=== PATIENT | female | born 1965 | race Hispanic/Latino ===

== ENCOUNTER 2025-04-13 04:29 | Emergency (ER) | payer BC ==
[~2025-04-13] VITALS: Ht 157.5 cm; Wt 84.4 kg
[2025-04-13 04:32] VITALS: TEMP 98.8
--- NOTE | 2025-04-13 04:53 | NUR ---
PT ARRIVED TO ED C/O N/V FOR PAST 2 DAYS. CAME TO ED DUE TO DECREASED URINE OUTPUT, FEELING WEAK AND DECREASED ORAL INTAKE. PT IS AWAKE AND ALERT X4 NO DISTRESS NOTED AT THIS TIME. PT VOICED GRANDSON WAS SICK WITH N/V AND COLD LIKE SYMPTOMS.PT DENIES ANY DIARREA OR FEVERS AT HOME.
--- NOTE | 2025-04-13 04:54 | ERN ---
ED Note History of Present Illness Stated Complaint: C/O ABD PAIN WITH N X V, HEADACHE Chief Complaint: Abdominal Pain Time Seen by MD: 04:49 Dictation: This is a 59-year-old female morbidly obese who presented to the emergency room with complaints of nausea vomitings with the abdominal pain. All this started today. No hematemesis or melena stated that she vomited 7 times and felt really bad as she was not urinating as much. She could not also have any tears which concerned her that she might be very dehydrated. In addition she complains of a headache mostly on the backside and chronic neck pains lower back pain. No diplopia facial asymmetry motor weakness or seizure activity Temperature 98.8� pulse 94 respirations 20 blood pressure 127/70 with a pulse oximetry of 98% on room air Her chronic medical problems include hypertension and depression Allergies: Coded Allergies: No Known Allergies (Unverified Allergy, Unknown, 04/13/25) Home Meds Active Scripts Nitrofurantoin Monohyd/M-Cryst (Macrobid 100 mg Capsule) 100 Mg Capsule, 1 CAP PO BID for 7 Days, #14 CAP 0 Refills Prov:DILEEP MOFFETT MD 04/13/25 Cyclobenzaprine HCl (Cyclobenzaprine HCl) 5 Mg Tablet, 1 TAB PO TIDP PRN for muscle spasms for 5 Days, #15 TAB 0 Refills Prov:DILEEP MOFFETT MD 04/13/25 Past Medical History Past Medical History: Depression, Hypertension Surgical History: Other Surgical History Other: TUBAL LIGATION Family History: Negative Social History: Negative History: Not Applicable RN Note Reviewed/Agreed w/PFSH: Yes Review of System Dictation Constitutional: Negative for fever,chills, and weight loss Eyes: Negative for injury, pain,redness, and discharge ENT: Negative for injury,pain or swelling Cardiovascular: Negative for chest pain, palpitations, and edema Respiratory: Negative for shortness of breath, cough, and wheezing, Abdomen/GI: Positive for abdominal pain, nausea, vomiting, denied diarrhea, and constipation Back: Negative for injury and positive for low back pain : Negative for injury, bleeding and discharge MS/Extremity: Negative for injury and deformity Skin: Negative for rash, and discoloration Neuro: Positive for headache, denied weakness, numbness, tingling, and seizure Psych: Negative for suicide ideation, homicidal ideation, and hallucinations Initial Vital Sign VS Vital Signs Date Time Temp Pulse Resp B/P (MAP) Pulse Ox O2 Delivery O2 Flow Rate FiO2 04/13/25 04:32 98.8 94 20 127/70 96 Room Air 04/13/25 04:50 0 21 Physical Exam Dictation General: awake, alert, NAD obese female who walked to the ER room Head/Face: Normocephalic, atraumatic Eyes: PERRL, EOMI, vision at baseline ENT: oral cavity clear, TMs clear, no signs of infection Neck: Trachea midline, supple, no nuchal rigidity Cardiovascular: RRR, normal S1/S2, No MRGs, no JVD Respiratory: CTAB, no respiratory distress, No rales or wheezes Abdomen: Soft, non-tender, non-distended, normal bowel sounds, no guarding or rebound. Skin: Warm, dry, normal turgor, no rash MS/Extremity: Pulses equal, no cyanosis, neurovascular intact, FROM Neuro: COAx4, GCS 15, strength 5/5, CN 2-12 intact, normal cerebellar exam, normal gait, Psych: Normal behavior, mood, and affect normal Extremities-trace edema without any palpable cords, Homans sign is negative Results (Laboratory/Radiology) Laboratory/Radiology Laboratory Tests Test 04/13/25 04:39 04/13/25 04:48 Urine Color YELLOW (YELLOW) Urine Appearance CLOUDY (CLEAR) H Urine pH 6.0 (5.0-8.0) Urine Specific [place] 1.031 (1.001-1.031) Urine Protein 30 mg/dL (NEGATIVE) H Urine Glucose (UA) NEGATIVE mg/dL (NEGATIVE) Urine Ketones NEGATIVE mg/dL (NEGATIVE) Urine Occult Blood NEGATIVE (NEGATIVE) Urine Nitrate NEGATIVE (NEGATIVE) Urine Bilirubin NEGATIVE mg/dL (NEGATIVE) Urine Urobilinogen 2.0 mg/dL (0.2-1.0) H Urine Leukocyte Esterase 250 Richie/uL (NEGATIVE) H Urine RBC 2-5 /HPF (0-1) H Urine WBC 6-10 /HPF (0-1) H Urine Squamous Epithelial Cells RARE /HPF (0-2) Urine Amorphous Crystals (Auto) FEW /LPF (None Seen) Urine Bacteria RARE /HPF (None Seen) White Blood Count 10.4 K/uL (4.8-10.8) Red Blood Count 4.43 MIL/uL (4.00-5.50) Hemoglobin 13.3 g/dL (12.0-16.0) Hematocrit 39.2 % (36-48) Mean Corpuscular Volume 88.5 fL (79-99) Mean Corpuscular Hemoglobin 30.0 pg (27.0-33.0) Mean Corpuscular Hemoglobin Concent 33.9 g/dL (32.0-36.0) Red Cell Distribution Width 12.8 % (11.0-15.5) Platelet Count 200 K/uL (130-400) Mean Platelet Volume 10.0 fL (7.5-10.5) Immature Granulocyte % (Auto) 0.5 % (0-1) Neutrophils (%) (Auto) 85.9 % (40.0-77.0) H Lymphocytes (%) (Auto) 8.4 % (21.0-51.0) L Monocytes (%) (Auto) 4.9 % (3.0-13.0) Eosinophils (%) (Auto) 0.2 % (0.0-8.0) Basophils (%) (Auto) 0.1 % (0.0-5.0) Neutrophils # (Auto) 9.0 K/uL (1.8-7.7) H Lymphocytes # (Auto) 0.9 K/uL (1.0-4.8) L Monocytes # (Auto) 0.5 K/uL (0.1-1.0) Eosinophils # (Auto) 0.02 K/uL (0.00-0.70) Basophils # (Auto) 0.01 K/uL (0.00-0.20) Absolute Immature Granulocyte (auto 0.05 K/uL (0-1) Nucleated Red Blood Cells 0.0 % (0.0-0.19) White Cell Morphology Comment See comments Sodium Level 138 mmol/L (136-145) Potassium Level 3.9 mmol/L (3.5-5.1) Chloride Level 102 mmol/L (101-111) Carbon Dioxide Level 28 mmol/L (21-32) Blood Urea Nitrogen 14 mg/dL (7-18) Creatinine 0.9 mg/dL (0.5-1.0) Glomerular Filtration Rate Calc 74 mL/min (>90) Random Glucose 130 mg/dL (70-105) H Total Calcium 8.8 mg/dL (8.5-10.1) Lipase 22 U/L (16-77) Labs Reviewed?: Yes ED Course ED Course Orders Procedure Category Date Status Time Cbc With Differential LAB 04/13/25 Complete 04:53 Urinalysis Profile LAB 04/13/25 Complete 04:53 Ketorolac PHA 04/13/25 Complete Tromethamine 30mg/Ml 05:00 Ondansetron 4mg Inj PHA 04/13/25 Complete (Zofran 4mg Inj) 05:00 Pantoprazole 40mg Inj PHA 04/13/25 Complete (Protonix 40mg Inj 05:00 Lipase LAB 04/13/25 Complete 04:53 Basic Metabolic Panel LAB 04/13/25 Complete 04:53 Culture Urine LANDON 04/13/25 In Process 05:21 Cyclobenzaprine Hcl PHA 04/13/25 Complete (Cyclobenzaprine Hcl 06:30 Diphenhydramine Hcl PHA 04/13/25 Complete (Benadryl Inj) 06:30 Morphine 2mg Syg PHA 04/13/25 Complete (Morphine 2mg Syg) 06:30 0.9%Nacl 1000ml (Ns PHA 04/13/25 In Process 1000ml) 06:30 Current Medications Medications (Trade) Dose Ordered Sig/Yoan Route PRN Reason Start Time Stop Time Status Last Admin Dose Admin Cyclobenzaprine HCl (Cyclobenzaprine HCl) 5 mg ONCE ONCE PO 04/13/25 06:30 04/13/25 06:31 DC 04/13/25 06:12 Diphenhydramine HCl (BENAdryl INJ) 25 mg ONCE ONCE IV 04/13/25 06:30 04/13/25 06:31 DC 04/13/25 06:11 Ketorolac Tromethamine (toRADol) 30 mg ONCE ONCE IVP 04/13/25 05:00 04/13/25 05:01 DC 04/13/25 05:03 Morphine Sulfate (morPHINE 2MG SYG) 2 mg ONCE ONCE IVP 04/13/25 06:30 04/13/25 06:31 DC 04/13/25 06:12 Ondansetron HCl (zoFRAN 4MG INJ) 4 mg ONCE ONCE IVP 04/13/25 05:00 04/13/25 05:01 DC 04/13/25 05:02 Pantoprazole Sodium (PROTonix 40MG INJ) 40 mg ONCE ONCE IVP 04/13/25 05:00 04/13/25 05:01 DC 04/13/25 05:03 Sodium Chloride 1,000 ml @ 0 mls/hr Q0M IV 04/13/25 06:30 05/13/25 06:29 04/13/25 06:32 Vital Signs Date Time Temp Pulse Resp B/P (MAP) Pulse Ox O2 Delivery O2 Flow Rate FiO2 04/13/25 06:53 78 18 118/57 99 Room Air* 0 21 04/13/25 05:56 94 18 121/68 100 Room Air* 0 21 04/13/25 04:50 90 18 123/71 98 Room Air* 0 21 04/13/25 04:32 98.8 94 20 127/70 96 Room Air We will perform diagnostic labs, advanced imaging and administer medications according to the patient's complaint. Once the results are available, will review and personally interpreted the labs to rule out any acute life- threatening emergency the trach require immediate intervention and treatment. I will then re-evaluate the patient after treatment and diagnostic exams have return to determine whether the patient requires any further testing, can safely be discharged home or need further admission to hospital for additional treatment and evaluation. Labs reviewed CBC BNP 7 is within normal limits. Urinalysis showed positive leuko esterase and WBC but no nitrites. Nausea vomitings responded to symptomatic management but she continues to have headache and neck pain. I updated her on the available information so far. I expressed my opinion that perhaps her neck pain is related to musculoskeletal tension headache and she was satisfied There is no nuchal rigidity fevers and chills. We will assess response to treatment for the headache with a muscle relaxant. 7:00 a.m. patient feels significantly improved and wants to be discharged to home. Updated her on UTI and antibiotics upon DC Medical Decision Making MDM MDM: Differential diagnosis: Gastroenteritis, tension headache, gastritis cholecystitis, pancreatitis Rationale: Tests considered and ordered secondary to shared decision making in clude: Previous outside records reviewed: Old ER visits. Risk of complication and/or morbidity or mortality of patient management: None Medications-Per medication reconciliation Need for hospitalization: Patient does not meet criteria for hospitalization. Need for emergency major/minor surgery: No There are no social concerns with this patient. Prescription drug management Prescriptions will include symptomatic care Patient's prior external medical records from other ER visits were reviewed by me as indicated. Prior testing and results from previous visits were reviewed. Prior tests were taken into account with medical decision making and resource utilization, independent historian/historians were used to obtain complete medical history. I independently interpreted the test that were performed, results were reviewed by me and considered findings on radiology if ordered. Medical management and examination interpretation discussions were had by me with other qualified healthcare professionals as indicated for the patient's care. Problem List Problem List: (1) Gastroenteritis (2) Tension headache (3) UTI (urinary tract infection) DX & DISP Disposition: Discharge Departure Impression: Primary Impression: Gastroenteritis Additional Impressions: Tension headache, UTI (urinary tract infection) Condition: Stable Scripts Nitrofurantoin Monohyd/M-Cryst (Macrobid 100 mg Capsule) 100 Mg Capsule 1 CAP PO BID for 7 Days, #14 CAP 0 Refills Prov: DILEEP MOFFETT MD 04/13/25 Cyclobenzaprine HCl (Cyclobenzaprine HCl) 5 Mg Tablet 1 TAB PO TIDP PRN for muscle spasms for 5 Days, #15 TAB 0 Refills Prov: DILEEP MOFFETT MD 04/13/25 Additional Instructions: Patient and the caregiver have been informed of all the diagnostic tests and the imaging conducted during the today's visit to the emergency room and has verbalized understanding of the results I have personally reviewed and interpreted all diagnostic exams performed here in the ER today as well as the vital signs documented by the nursing staff. The patient is now being disc harged to home and should follow up with the primary care physician or the specialist as directed by the ER staff. Follow-up with primary care provider in 1 to 2 days. Take medications as directed here in the emergency room. Okay to continue home medications unless otherwise discussed during your visit in the emergency room today. Return to your nearest emergency room if symptoms worsen or if there is no improvement. Call 911 if you need immediate assistance. Take Tylenol or Motrin [id number] as needed and if no contraindications are present. Increase oral hydration. A wound culture or urine culture was ordered here in the emergency room department please follow-up with primary care provider and advise them to get repeat ports from our facility. If you had any Stephen wrap/splints that were applied here, please do not remove them until you see your primary care or specialty. Referrals: SELF,REFERRAL (PCP) DILEEP MOFFETT MD April 13, 2025 04:54
[2025-04-13] MEDS: ondanSETRON 4MG INJ IVP ONE (05:02)
[2025-04-13] MEDS: ketOROlac 30MG VIAL (30MG/ML) IVP ONE (05:03)
[2025-04-13] MEDS: PANTOPrazole 40 MG/VIAL IVP ONE (05:03)
[2025-04-13 05:05] LABS: BASOPHILS # (AUTO) 0.01 K/uL (0.00-0.20); BASOPHILS % (AUTO) 0.1 % (0.0-5.0); EOSINOPHILS # (AUTO) 0.02 K/uL (0.00-0.70); EOSINOPHILS % (AUTO) 0.2 % (0.0-8.0); HEMATOCRIT 39.2 % (36-48); IMMATURE GRANULOCYTE ABSOLUTE 0.05 K/uL (0-1); LYMPHOCYTES # (AUTO) 0.9 K/uL (1.0-4.8); LYMPHOCYTES % (AUTO) 8.4 % (21.0-51.0); MEAN CORPUSCULAR HGB CONC 33.9 g/dL (32.0-36.0); MEAN CORPUSCULAR VOLUME 88.5 fL (79-99); MONOCYTES # (AUTO) 0.5 K/uL (0.1-1.0); MONOCYTES % (AUTO) 4.9 % (3.0-13.0); NEUTROPHILS % (AUTO) 85.9 % (40.0-77.0); PLATELET COUNT (AUTO) 200 K/uL (130-400); RED BLOOD CELL COUNT(AUTO) 4.43 MIL/uL (4.00-5.50); RED CELL DISTRIBUTION WIDTH 12.8 % (11.0-15.5); WHITE BLOOD COUNT (AUTO) 10.4 K/uL (4.8-10.8)
[2025-04-13 05:17] LABS: POTASSIUM 3.9 mmol/L (3.5-5.1)
[2025-04-13 05:19] LABS: BILIRUBIN,URINE NEGATIVE (NEGATIVE); COLOR,URINE YELLOW (YELLOW); GLUCOSE, URINE (UA) NEGATIVE (NEGATIVE); KETONES,URINE NEGATIVE (NEGATIVE); LEUKOCYTE ESTERASE ,URINE 250 Leu/uL (NEGATIVE); NITRATE,URINE NEGATIVE (NEGATIVE); OCCULT BLOOD,URINE NEGATIVE (NEGATIVE); PROTEIN,URINE 30 mg/dL (NEGATIVE)
[2025-04-13 05:21] LABS: ADD UA MICROSCOPIC YES; APPEARANCE,URINE CLOUDY (CLEAR)
[2025-04-13 05:25] LABS: BACTERIA,URINE RARE /HPF (None Seen); MUCUS,URINE MANY LPF (None Seen); SQUAMOUS EPITHELIAL CELL,UR RARE /HPF (0-2)
[2025-04-13 05:26] LABS: CREATININE 0.9 mg/dL (0.5-1.0)
[2025-04-13] MEDS: DiphenhydrAMINE HCL 50 MG/ML VIAL IV ONE (06:11)
[2025-04-13] MEDS: CYCLOBENZAPRINE HCL 10 MG TABLET PO ONE (06:12)
[2025-04-13] MEDS: morPHINE 2 MG SYG IVP ONE (06:12)
[2025-04-13] MEDS ORDERED: NITR100C4 PO (06:23)
[2025-04-13] MEDS ORDERED: CYCL5TAB3 PO (06:23)
[2025-04-13] MEDS: 0.9%NACL 1000ML 1,000 ML IV SCH (06:32)
[2025-04-13 06:53] VITALS: BP 118/57; PULSE 78; RESP 18; O2SAT 99
--- NOTE | 2025-04-13 07:16 | NUR ---
DC PATIENT WAS DC'D BY DR. MOFFETT, I DC'D PATIENTS IV WITH CATH STILL IN PLACE AND APPLIED 2X2 GAUZE WITH TAPE I EXPLAINED TO PATIENT TO FOLLOW UP WITH PCP, TAKE NEW PRESCRIPTIONS DIRECTED AND PROVIDED INFO BASED ON DIAGNOSIS PATIENT AMBULATED OUT OF ED, ACCOMPANIED BY , NO COMPLICATIONS
== END 2025-04-13 06:58 | disposition home or self-care (01) ==
LOC: EDH 04:29
DX: K52.9 Noninfective gastroenteritis and colitis, unspecified (principal); G44.209 Tension-type headache, unspecified, not intractable; N39.0 Urinary tract infection, site not specified; I10 Essential (primary) hypertension; Z98.51 Tubal ligation status
CPT/HCPCS: 99284; 96374; 96375; 80048; 83690; 85025; 87086; 81001; 36415; J1885; J1200; J2270; J2405; J2470